=== PATIENT | female | born 1980 | race Caucasian/White ===

== ENCOUNTER 2021-02-04 10:15 | Inpatient (IN) ==
--- NOTE | 2021-02-04 10:40 | Emergency Department Note ---
History of Present Illness General Chief complaint: Mental Health Evaluation Stated complaint: MAJOR DEPRESSION Time Seen by Provider: 02/04/21 10:21 Source: patient and family (Stepmother who is at the bedside) Mode of arrival: ambulatory Limitations: no limitations History of Present Illness Maximum Pain Intensity: 0 This patient comes in complaining of feeling depressed for the last 4 weeks. She says that she has depression is got increasingly worse. She was actually hospitalized in June in [place] for a manic episode. She was very nonfunctional at that time. She has had no manic episodes recently but has gotten severely depressed. She is followed by Dr. Martinez at some point and they have adjusted her medications but she says is not helping. She is on Latuda and they change it to Lamictal. She has not been sleeping well she is been crying a lot. She has had a decreased appetite and she estimates she lost about 15 pounds during this time. She is had no overt suicidal plan but says she just does not want a live. No homicidal plan. She is not seeing or hearing things. No overdose. No aspirin or Tylenol use. She has had diarrhea. No fever. No chest pain or shortness of breath. She is not had the Covid vaccine or the Covid illness. No known exposure to Covid. She denies as she has had a tubal ligation. Home Medications Medication Instructions Recorded Confirmed Type cariprazine [Vraylar] 1.5 mg PO DAILY 02/04/21 02/04/21 History fluoxetine [Prozac] 40 mg PO DAILY 02/04/21 02/04/21 History lamotrigine 25 mg PO DAILY 02/04/21 02/04/21 History Allergies Allergy/AdvReac Type Severity Reaction Status Date / Time No Known Allergies Allergy Unverified 02/04/21 10:46 Past Med/Surg History Social History Smoking Status: Current every day smoker Tobacco Type: Cigarettes Feels Safe at Home: Yes Immunizations: Past medical historybipolar, anxiety, tubal ligation, PTSD Social history. She smokes 1/2 pack a day. Denies alcohol use. She does use medical marijuana for PTSD up to about 6 times a day Review of Systems A total of 10 systems reviewed and were otherwise negative Physical Exam Vital Signs Vital Signs - 24 hr 02/04/21 10:18 02/04/21 12:04 Temperature 36.6 C Temperature Source Temporal Artery Scan Pulse Rate 71 Pulse Rate [Right Finger] 64 Respiratory Rate 16 20 Respiratory Effort / Characteristics Non-Labored Respiratory Depth Normal Blood Pressure 158/103 H Blood Pressure [Right Arm] 131/80 Blood Pressure Mean 121 Blood Pressure Mean [Right Arm] 97 Pulse Oximetry 97 98 Oxygen Delivery Method Room Air Room Air Sepsis Recent Fever Within 48 Hours No Sepsis New/Unexplained Change in Mental Status No Sepsis Action Taken by Nursing No Action Required General: Well developed well nourished middle-age female who appears in no acute distress, breathing comfortably on room air. Normal speech HEENT: Normal cephalic atraumatic. Pupils are equal round and reactive to light. Extraocular movements are intact. Oropharynx is pink with moist mucous membranes. No swelling of the mouth lips or tongue. Neck: Supple with a midline trachea. No meningeal signs or stiffness, no JVD or bruits. No Stridor. Chest: Clear to auscultation bilaterally. No wheezes or rhonchi. No increased work of breathing. Heart: Regular rate and rhythm without murmurs or gallops. Abdomen: Soft nontender, nondistended without rebound guarding or rigidity. Extremities: No cyanosis clubbing or edema. No calf tenderness or assymetry Spine/Back. Non tender to palpation. No CVA tenderness Skin: Good turgor without rashes. Neurologic exam: Cranial nerves two through 12 are intact. Motor and sensation are intact and symmetrical throughout. Psych: Normal affect and thought process. Denies active suicidal or homicidal ideations. Medical Decision Making Differential Diagnosis Depression, anxiety, suicidal ideations, toxicologic, metabolic, overdose, Covid, Medical Records Attestation: I reviewed the patient's medical records. Home Medications Current Medication List: was personally reviewed by me Laboratory Data Attestation: I reviewed the patient's lab results. Result diagrams: 02/04/21 11:08 02/04/21 11:08 Lab Results 02/04/21 02/04/21 02/04/21 Range/Units 10:40 10:40 10:41 WBC (4.8-10.8) K/uL RBC (4.2-5.4) M/uL Hgb (12.0-16.0) g/dL Hct (37-47) % MCV (80-100) fL MCH (25-34) pg MCHC (32-36) g/dL RDW Std Deviation (36.4-46.3) fL RDW Coeff of Johana (11.5-14.5) % Plt Count (130-400) K/uL MPV (7.4-10.4) fL Immature Gran % (Auto) % Neut % (Auto) % Lymph % (Auto) % [place] % (Auto) % Eos % (Auto) % Baso % (Auto) % Neut # (Auto) (1.4-6.5) K/uL Lymph # (Auto) (1.2-3.4) K/uL [place] # (Auto) (0.11-0.59) K/uL Eos # (Auto) (0-0.5) K/uL Baso # (Auto) (0-0.2) K/uL Immature Gran # (Auto) (0.00-0.02) K/uL Sodium (136-145) mmol/L Potassium (3.5-5.1) mmol/L Chloride (98-107) mmol/L Carbon Dioxide (21-32) mmol/L Anion Gap (3-11) BUN (7-18) mg/dl Creatinine (0.6-1.2) mg/dl Est Cr Clr Drug Dosing ml/min Est GFR ( Amer) ml/min Est GFR (Non-Af Amer) ml/min BUN/Creatinine Ratio (10-20) Glucose (70-99) mg/dl Calcium (8.5-10.1) mg/dl Total Bilirubin (0.2-1) mg/dl AST (15-37) U/L ALT (12-78) U/L Alkaline Phosphatase (45-117) U/L Total Protein (6.4-8.2) gm/dl Albumin (3.4-5.0) gm/dl Globulin (2.5-4.0) gm/dl Albumin/Globulin Ratio (0.9-2) TSH (0.300-4.500) uIu/ml HCG, Qual (Negative) Urine Color Yellow Urine Appearance Cloudy A (Clear) Urine pH 7.5 (4.5-7.5) Ur Specific [place] 1.021 (1.000-1.030) Urine Protein Negative (Negative) Urine Glucose (UA) Negative (Negative) Urine Ketones 1+ H (Negative) Urine Blood 1+ H (Negative) Urine Nitrite Negative (Negative) Urine Bilirubin Negative (Negative) Urine Urobilinogen Negative (Negative) Ur Leukocyte Esterase Negative (Negative) Urine WBC (Auto) 1-5 (0-5) /hpf Urine RBC (Auto) 10-30 H (0-4) /hpf U Hyaline Cast (Auto) 1-5 (0-5) /lpf U Epithel Cells (Auto) >30 H (0-5) /lpf Urine Bacteria (Auto) Negative (Negative) Salicylates (2.8-20) mg/dl Urine Opiates Screen Neg (Neg) Ur Methadone, Qual Neg (Neg) Acetaminophen (10-30) ug/ml Urine Barbiturates Neg (Neg) Ur Phencyclidine (PCP) Neg (Neg) U Amphetamin/Meth Scrn Neg (Neg) MDMA (Ecstasy) Screen Neg (Neg) U Benzodiazepines Scrn Neg (Neg) Ur Cocaine Metabolite Neg (Neg) U Marijuana (THC) Screen Pos H (Neg) Ethyl Alcohol mg/dL (0-3) mg/dl COVID-19 Eval Order Covid19 at [facility] SARS-CoV-2 (PCR) (Negative) 02/04/21 02/04/21 02/04/21 Range/Units 10:41 11:08 11:08 WBC 9.46 (4.8-10.8) K/uL RBC 4.62 (4.2-5.4) M/uL Hgb 14.7 (12.0-16.0) g/dL Hct 42.0 (37-47) % MCV 90.9 (80-100) fL MCH 31.8 (25-34) pg MCHC 35.0 (32-36) g/dL RDW Std Deviation 41.5 (36.4-46.3) fL RDW Coeff of Johana 12.6 (11.5-14.5) % Plt Count 294 (130-400) K/uL MPV 9.3 (7.4-10.4) fL Immature Gran % (Auto) 0.5 % Neut % (Auto) 77.7 % Lymph % (Auto) 15.9 % [place] % (Auto) 5.0 % Eos % (Auto) 0.7 % Baso % (Auto) 0.2 % Neut # (Auto) 7.35 H (1.4-6.5) K/uL Lymph # (Auto) 1.50 (1.2-3.4) K/uL [place] # (Auto) 0.47 (0.11-0.59) K/uL Eos # (Auto) 0.07 (0-0.5) K/uL Baso # (Auto) 0.02 (0-0.2) K/uL Immature Gran # (Auto) 0.05 H (0.00-0.02) K/uL Sodium 139 (136-145) mmol/L Potassium 3.8 (3.5-5.1) mmol/L Chloride 104 (98-107) mmol/L Carbon Dioxide 29 (21-32) mmol/L Anion Gap 6.0 (3-11) BUN 10 (7-18) mg/dl Creatinine 0.67 (0.6-1.2) mg/dl Est Cr Clr Drug Dosing 132.0 ml/min Est GFR ( Amer) 129.2 ml/min Est GFR (Non-Af Amer) 111.5 ml/min BUN/Creatinine Ratio 14.7 (10-20) Glucose 108 H (70-99) mg/dl Calcium 9.2 (8.5-10.1) mg/dl Total Bilirubin 0.7 (0.2-1) mg/dl AST 19 (15-37) U/L ALT 38 (12-78) U/L Alkaline Phosphatase 65 (45-117) U/L Total Protein 7.6 (6.4-8.2) gm/dl Albumin 4.1 (3.4-5.0) gm/dl Globulin 3.5 (2.5-4.0) gm/dl Albumin/Globulin Ratio 1.2 (0.9-2) TSH 0.657 (0.300-4.500) uIu/ml HCG, Qual (Negative) Urine Color Urine Appearance (Clear) Urine pH (4.5-7.5) Ur Specific Colgate (1.000-1.030) Urine Protein (Negative) Urine Glucose (UA) (Negative) Urine Ketones (Negative) Urine Blood (Negative) Urine Nitrite (Negative) Urine Bilirubin (Negative) Urine Urobilinogen (Negative) Ur Leukocyte Esterase (Negative) Urine WBC (Auto) (0-5) /hpf Urine RBC (Auto) (0-4) /hpf U Hyaline Cast (Auto) (0-5) /lpf U Epithel Cells (Auto) (0-5) /lpf Urine Bacteria (Auto) (Negative) Salicylates (2.8-20) mg/dl Urine Opiates Screen (Neg) Ur Methadone, Qual (Neg) Acetaminophen (10-30) ug/ml Urine Barbiturates (Neg) Ur Phencyclidine (PCP) (Neg) U Amphetamin/Meth Scrn (Neg) MDMA (Ecstasy) Screen (Neg) U Benzodiazepines Scrn (Neg) Ur Cocaine Metabolite (Neg) U Marijuana (THC) Screen (Neg) Ethyl Alcohol mg/dL (0-3) mg/dl COVID-19 Eval Order SARS-CoV-2 (PCR) NEGATIVE (Negative) 02/04/21 02/04/21 02/04/21 Range/Units 11:08 11:08 11:08 WBC (4.8-10.8) K/uL RBC (4.2-5.4) M/uL Hgb (12.0-16.0) g/dL Hct (37-47) % MCV (80-100) fL MCH (25-34) pg MCHC (32-36) g/dL RDW Std Deviation (36.4-46.3) fL RDW Coeff of Johana (11.5-14.5) % Plt Count (130-400) K/uL MPV (7.4-10.4) fL Immature Gran % (Auto) % Neut % (Auto) % Lymph % (Auto) % [place] % (Auto) % Eos % (Auto) % Baso % (Auto) % Neut # (Auto) (1.4-6.5) K/uL Lymph # (Auto) (1.2-3.4) K/uL [place] # (Auto) (0.11-0.59) K/uL Eos # (Auto) (0-0.5) K/uL Baso # (Auto) (0-0.2) K/uL Immature Gran # (Auto) (0.00-0.02) K/uL Sodium (136-145) mmol/L Potassium (3.5-5.1) mmol/L Chloride (98-107) mmol/L Carbon Dioxide (21-32) mmol/L Anion Gap (3-11) BUN (7-18) mg/dl Creatinine (0.6-1.2) mg/dl Est Cr Clr Drug Dosing ml/min Est GFR ( Amer) ml/min Est GFR (Non-Af Amer) ml/min BUN/Creatinine Ratio (10-20) Glucose (70-99) mg/dl Calcium (8.5-10.1) mg/dl Total Bilirubin (0.2-1) mg/dl AST (15-37) U/L ALT (12-78) U/L Alkaline Phosphatase (45-117) U/L Total Protein (6.4-8.2) gm/dl Albumin (3.4-5.0) gm/dl Globulin (2.5-4.0) gm/dl Albumin/Globulin Ratio (0.9-2) TSH (0.300-4.500) uIu/ml HCG, Qual Negative (Negative) Urine Color Urine Appearance (Clear) Urine pH (4.5-7.5) Ur Specific [place]gate (1.000-1.030) Urine Protein (Negative) Urine Glucose (UA) (Negative) Urine Ketones (Negative) Urine Blood (Negative) Urine Nitrite (Negative) Urine Bilirubin (Negative) Urine Urobilinogen (Negative) Ur Leukocyte Esterase (Negative) Urine WBC (Auto) (0-5) /hpf Urine RBC (Auto) (0-4) /hpf U Hyaline Cast (Auto) (0-5) /lpf U Epithel Cells (Auto) (0-5) /lpf Urine Bacteria (Auto) (Negative) Salicylates 1.8 L (2.8-20) mg/dl Urine Opiates Screen (Neg) Ur Methadone, Qual (Neg) Acetaminophen < 2 L (10-30) ug/ml Urine Barbiturates (Neg) Ur Phencyclidine (PCP) (Neg) U Amphetamin/Meth Scrn (Neg) MDMA (Ecstasy) Screen (Neg) U Benzodiazepines Scrn (Neg) Ur Cocaine Metabolite (Neg) U Marijuana (THC) Screen (Neg) Ethyl Alcohol mg/dL < 3.0 (0-3) mg/dl COVID-19 Eval Order SARS-CoV-2 (PCR) (Negative) Imaging Data Attestation: I personally reviewed and interpreted this imaging study as follows: MDM Narrative This patient comes in as described above. She was placed in room A7. She is here for treatment evaluation of increasing depression. She has been following closely with her outpatient psychiatrist and despite this medication changes she does not feel she is doing well. Multiple blood testing, urinalysis, and Covid testing was obtained for medical clearance. She has no significant electrolyte or metabolic abnormalities. She is nothing to suggest acute toxicologic or infectious process. Covid testing was negative. She has remained stable. She has been medically cleared and was further evaluated by our psychiatric pillowcase turner. She will be admitted voluntarily to our mental health unit at [facility]. Impression & Plan Depression, Anxiety, Lab test negative for COVID-19 virus Discharge Plan Visit Data Chief Complaint: Mental Health Evaluation Stated Complaint: MAJOR DEPRESSION ED Provider: Eric Zamorano Discharge Problem: Depression, Anxiety, Lab test negative for COVID-19 virus Discharge Instructions Interventions: ED Discharge Assessment Last Done: 02/04/21 14:25 Forms Stand Alone Forms: [facility], Suicide Prevention Resources Prescriptions Prescriptions: No Action fluoxetine [Prozac] 40 mg Capsule 40 mg PO DAILY RF: 0 lamotrigine 25 mg tablet 25 mg PO DAILY RF: 0 Vraylar 1.5 mg capsule 1.5 mg PO DAILY RF: 0 Referrals Referrals: Brenda Emerson DO [Primary Care Provider] - Discharge Problem: Depression Qualifiers: Depression Type: unspecified Qualified Code(s): F32.9 - Major depressive disorder, single episode, unspecified
[2021-02-04 11:11] LABS: Appearance Urine Cloudy (Clear); Bacteria Urine Automated Negative (Negative); Bilirubin Urine Negative (Negative); Blood Urine 1+ (Negative); Color Urine Yellow; Epithelial Cell Urine Auto >30 /lpf (0-5); Glucose Urine UA Negative (Negative); Ketones Urine 1+ (Negative); Leukocyte Esterase Urine Negative (Negative); Nitrite Urine Negative (Negative); Protein Urine Negative (Negative); Specific Gravity Urine 1.021 (1.000-1.030); Urobilinogen Urine Negative (Negative); pH Urine 7.5 (4.5-7.5)
[2021-02-04 11:20] LABS: Basophils # (auto) 0.02 K/uL (0-0.2); Basophils % (auto) 0.2 %; Eosinophils # (auto) 0.07 K/uL (0-0.5); Eosinophils % (auto) 0.7 %; Hemoglobin 14.7 g/dL (12.0-16.0); Immature Granulocytes # (auto) 0.05 K/uL (0.00-0.02); Immature Granulocytes % (auto) 0.5 %; Lymphocytes % (auto) 15.9 %; Mean Corpuscular Hemoglobin 31.8 pg (25-34); Mean Corpuscular Volume 90.9 fL (80-100); Mean Platelet Volume 9.3 fL (7.4-10.4); Monocytes # (auto) 0.47 K/uL (0.11-0.59); Neutrophils # (auto) 7.35 K/uL (1.4-6.5); Neutrophils % (auto) 77.7 %; Platelet Count 294 K/uL (130-400); RDW Coefficient of Variation 12.6 % (11.5-14.5); RDW Standard Deviation 41.5 fL (36.4-46.3); Red Blood Count 4.62 M/uL (4.2-5.4); White Blood Count 9.46 K/uL (4.8-10.8)
[2021-02-04 11:24] LABS: Amphetamines+Metham, Urine Neg (Neg); Barbiturates, Urine Neg (Neg); Benzodiazepine, Urine Neg (Neg); Cocaine, Urine Neg (Neg); MDMA (Ecstacy), Urine Neg (Neg); Methadone, Urine Neg (Neg); Opiate, Urine Neg (Neg); Phencyclidine, Urine Neg (Neg)
[2021-02-04 11:33] LABS: Pregnancy Test, Serum Negative (Negative)
[2021-02-04 11:39] LABS: Albumin Level 4.1 gm/dl (3.4-5.0); BUN Creatinine Ratio 14.7 (10-20); Calcium 9.2 mg/dl (8.5-10.1); Est GFR (African American) 129.2 ml/min; Est GFR (Non-African American) 111.5 ml/min; Potassium 3.8 mmol/L (3.5-5.1)
[2021-02-04 11:44] LABS: Acetaminophen < 2 ug/ml (10-30); Salicylate 1.8 mg/dl (2.8-20)
[2021-02-04 11:49] LABS: Albumin Globulin Ratio 1.2 (0.9-2); Bilirubin,Total 0.7 mg/dl (0.2-1); Globulin 3.5 gm/dl (2.5-4.0); Thyroid Stimulating Hormone 0.657 uIu/ml (0.300-4.500); Total Protein 7.6 gm/dl (6.4-8.2)
[2021-02-04] MEDS ORDERED: hydrOXYzine HCl 25 MG TAB PO PRN (14:54)
[2021-02-04] MEDS ORDERED: BISMUTH SUBSALICYLATE LIQD 236 ML PO PRN (14:54)
[2021-02-04] MEDS ORDERED: ACETAMINOPHEN 325 MG TAB PO PRN (14:54)
[2021-02-04] MEDS ORDERED: ALUMINUM/MAGNESIUM SUSP 30 ML UDC PO PRN (14:54)
[2021-02-04] MEDS ORDERED: SODIUM CHLORIDE 0.65% NA SOLN 45 ML (OCEAN) PRN (14:54)
[2021-02-04] MEDS ORDERED: MAGNESIUM HYDROXIDE SUSP 30 ML UDC PO PRN (14:54)
[2021-02-04] MEDS: hydrOXYzine HCl 25 MG TAB PO PRN (21:15)
[2021-02-05] MEDS ORDERED: PROPRANOLOL HCL 20 MG TAB PO PRN (12:22)
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
[2021-02-05] MEDS ORDERED: ARIPIprazole 1 MG/ML ORAL SOLN 150 ML BTL PO SCH (13:00)
[2021-02-05] MEDS: ARIPiprazole 5 MG TAB PO SCH (14:22)
[2021-02-05] MEDS: FLUoxetine HCL 20 MG CAP PO SCH (14:24)
[2021-02-05 16:06] LABS: Marijuana Quant, GCMS Urine 678 ng/mL (<5)
[2021-02-05] MEDS: lamoTRIgine 25 MG TAB PO SCH (20:46)
[2021-02-05] MEDS: LITHIUM CARBONATE 300 MG TAB PO SCH (20:46)
[2021-02-06] MEDS: FLUoxetine HCL 20 MG CAP PO SCH (10:26)
[2021-02-06] MEDS: ARIPiprazole 5 MG TAB PO SCH (10:26)
--- NOTE | 2021-02-06 17:47 | Psychiatric Progress Note ---
Date of Service February 06, 2021 Impression / Recommendations Impression 40-year old female with a history of bipolar disorder current episode presents as depressed. (1) Depression: Patient #1 his depression patient is admitted to the [address] inpatient mental health unit on a every 15 minute check behavior with suicide precautions for safety the patient will participate in groups both recreation and milieu therapies and will be offered additional individual and family sessions as clinically appropriate. For bipolar depression patient will be started low-dose lithium 300mg, discussed risks and benefits of lithium with this patient she is agreeable to taking it. Understands the possibility of hypothyroidism as well as problems with her kidney and weight gain she agrees to take this as a short-term medication while her Lamictal is being titrated up Patient started on Lamictal 50 mg recently started about a week and a half ago no side effects so far patient is able to go up to 50 mg Patient will be started low-dose Abilify 2 mg every morning with a plan to titrate to 5 mg as an adjunct to her treatment. Patient does not want to continue Vraylar, reports that 3 mg does gave her side effects and not think 1.5 mg is working will discontinue Vraylar 02/06/21-reports feeling better side effects has not noticed any yet we will continue lithium we will continue low-dose Abilify consider increasing to 5 mg tomorrow. Patient was not actively suicidal is still concerned about depression especially in the context of returning to home stressors. Her family meeting went well. We will continue to monitor response to medications. (2) Anxiety: Patient will be started on hydroxyzine 3 times daily as needed anxiety patient also taking propanolol at home 20 mg 3 times daily as needed anxiety views were continued. (3) Cannabis use disorder, moderate, dependence: Patient reports daily use of medical marijuana. 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 Patient advised to discontinue use of cannabis. Would consider outpatient therapy for this. Risk Factors Assessment Do You Have Access To A Gun?: No Protective Factors Assessment Employed: Yes ([employer]) Interval History Chief Complaint "[I think I am doing better I sometimes think I am confused but the medications are helping]". Review of Systems Sleep Information Total Hours of Sleep: 6.5 Meal Information Percent Meal Consumed - Breakfast: 50 Percent Meal Consumed - Lunch: 100 Percent Meal Consumed - Dinner: 90 Subjective Subjective Patient was seen & assessed and interval progress reviewed with [treatment team] [nursing and social work, patient is engaged in groups, denies side effects to her current medication reports a deeper understanding of how cannabis use may have been affecting her health. Denies suicidal ideation or homicidal ideation feels that the depression is lifting" denies hopelessness. Physical Exam Psychiatric Orientation: alert, oriented x 3, oriented to person and cooperative Apperance: appropriately dressed Eye Contact: good eye contact Motor Behavior: steady gait and station Speech: normal rate/rhythm/volume of speech; no pressured speech and no loud speech Affect: + depressed affect, + anxious affect and + tearful affect Mood: + depressed mood Thought Process: goal directed thought process and linear/logical thought process; no flight of ideas and no looseness of associations Thought Content: no preoccupation Suicidal Thoughts: denies suicidal thoughts Homicidal Thoughts: denies homicidal thoughts Hallucinations: no auditory hallucinations and no visual hallucinations Cognition: recent memory grossly intact, remote memory grossly intact, attention grossly intact and language grossly intact Estimated Intelligence: consistent with education level Insight: good insight Judgement: good judgement Vital Signs (Past 24 Hours) Last Vital Signs Temp 36.7 C 02/06/21 06:36 Pulse 73 02/06/21 06:37 Resp 16 02/06/21 06:36 BP 139/86 02/06/21 06:37 Pulse Ox 98 02/04/21 12:04 Physical exam was performed in the ED by Dr. Eric Zamorano on 02/04/2021 for the purposes of medical clearance I assessed the physical exam as correct and adequate for the purposes of the inpatient exam. Results & Data ([facility]) Current Inpatient Medications Current Inpatient Medications: Current Inpatient Medications Acetaminophen (Acetaminophen 325 Mg Tab) 650 mg PO Q4H PRN PRN Reason: Headache or Minor Fever Stop: 03/06/21 14:53 Al Hydrox/Mg Hydrox/Simethicone (Aluminum/Magnesium Susp 30 Ml Udc) 30 ml PO Q4H PRN PRN Reason: GI Upset Stop: 03/06/21 14:53 Aripiprazole (Aripiprazole 5 Mg Tab) 2.5 mg PO QAM JENNIFER Stop: 03/07/21 13:29 Last Admin: 02/06/21 10:26 Dose: 2.5 mg Documented by: Bismuth Subsalicylate (Bismuth Subsalicylate Liqd 236 Ml) 15 ml PO PRN PRN PRN Reason: Loose Stool Stop: 03/06/21 14:53 Fluoxetine HCl (Fluoxetine Hcl 20 Mg Cap) 20 mg PO QAM JENNIFER Stop: 03/07/21 12:59 Last Admin: 02/06/21 10:26 Dose: 20 mg Documented by: Hydroxyzine HCl (Hydroxyzine Hcl 25 Mg Tab) 50 mg PO HSZ PRN PRN Reason: Insomnia Stop: 03/06/21 14:53 Last Admin: 02/04/21 21:15 Dose: 50 mg Documented by: Hydroxyzine HCl (Hydroxyzine Hcl 25 Mg Tab) 25 mg PO Q4H PRN PRN Reason: Anxiety Stop: 03/06/21 14:53 Last Admin: 02/04/21 20:03 Dose: 25 mg Documented by: Lamotrigine (Lamotrigine 25 Mg Tab) 50 mg PO HS JENNIFER Stop: 03/07/21 21:59 Last Admin: 02/05/21 20:46 Dose: 50 mg Documented by: [place] Carbonate ([place] Carbonate 300 Mg Tab) 300 mg PO HS JENNIFER Stop: 03/07/21 21:59 Last Admin: 02/05/21 20:46 Dose: 300 mg Documented by: Magnesium Hydroxide (Magnesium Hydroxide Susp 30 Ml Udc) 30 ml PO DAILY PRN PRN Reason: Constipation Stop: 03/06/21 14:53 Propranolol HCl (Propranolol Hcl 20 Mg Tab) 20 mg PO BID PRN PRN Reason: anxiety/akasthesia Stop: 03/07/21 12:21 Sodium Chloride (Sodium Chloride 0.65% Na Soln 45 Ml ([place])) 1 - 2 sprays NA PRN PRN PRN Reason: Nasal Dryness/Congestion Stop: 03/06/21 14:53 Mental Health & Subst Abuse Tx Psychiatrist Name of Psychiatrist: Dr. Martinez [facility] Psychiatrist's Date of Appointment with Psychiatrist: 02/15/21 Time of Appointment with Psychiatrist: 11am Psychiatric Appointment Comment: virtual Therapist Name of Therapist: Hung [place] Therapist's Therapy Appointment Comment: contacted- left message Parboiler Name of Parboiler: None Post Discharge Appointments Primary Care Physician Name Of Family Doctor: Flor Hernadez Contact Information Discharge Discharge Address: [address] [place] [id number] (1) Depression Depression Type: unspecified Qualified Code(s): F32.9 - Major depressive disorder, single episode, unspecified
[2021-02-06] MEDS: lamoTRIgine 25 MG TAB PO SCH (21:09)
[2021-02-06] MEDS: LITHIUM CARBONATE 300 MG TAB PO SCH (21:09)
[2021-02-06] MEDS: hydrOXYzine HCl 25 MG TAB PO PRN (21:11)
[2021-02-07 08:35] LABS: Glucose Fasting 112 mg/dl (70-99)
[2021-02-07 08:42] LABS: Chol HDL Ratio 5; Cholesterol 207 mg/dl (0-200); HDL Cholesterol 40 mg/dl; LDL Cholesterol Calculated 135 mg/dl; Triglycerides 161 mg/dl (0-150); VLDL Cholesterol 32 mg/dl
[2021-02-07] MEDS: ARIPiprazole 5 MG TAB PO SCH (08:42)
[2021-02-07] MEDS: FLUoxetine HCL 20 MG CAP PO SCH (08:43)
--- NOTE | 2021-02-07 14:18 | Psychiatric Progress Note ---
Date of Service February 07, 2021 Impression / Recommendations Impression 40-year old female with a history of bipolar disorder current episode presents as depressed. (1) Depression: Patient #1 his depression patient is admitted to the [address] inpatient mental health unit on a every 15 minute check behavior with suicide precautions for safety the patient will participate in groups both recreation and milieu therapies and will be offered additional individual and family sessions as clinically appropriate. For bipolar depression patient will be started low-dose lithium 300mg, discussed risks and benefits of lithium with this patient she is agreeable to taking it. Understands the possibility of hypothyroidism as well as problems with her kidney and weight gain she agrees to take this as a short-term medication while her Lamictal is being titrated up Patient started on Lamictal 50 mg recently started about a week and a half ago no side effects so far patient is able to go up to 50 mg Patient will be started low-dose Abilify 2 mg every morning with a plan to titrate to 5 mg as an adjunct to her treatment. Patient does not want to continue Vraylar, reports that 3 mg does gave her side effects and not think 1.5 mg is working will discontinue Vraylar 02/07/2021 patient reports no side effects on current medications his medications have been stabilizing understands the plan to titrate Lamictal to 75 mg we will keep Prozac at 20 mg patient doing really well on this him doing well on Abilify will keep Abilify same dose consider increasing to 5 mg and after discharge information will be sent to primary care doctor as well as a psychiatrist at this today there is no thoughts of suicide however important to continue to monitor medication. 02/06/21-reports feeling better side effects has not noticed any yet we will continue lithium we will continue low-dose Abilify consider increasing to 5 mg tomorrow. Patient was not actively suicidal is still concerned about depression especially in the context of returning to home stressors. Her family meeting went well. We will continue to monitor response to medications. (2) Anxiety: Patient will be started on hydroxyzine 3 times daily as needed anxiety patient also taking propanolol at home 20 mg 3 times daily as needed anxiety views were continued. (3) Cannabis use disorder, moderate, dependence: Patient reports daily use of medical marijuana. 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 Patient advised to discontinue use of cannabis. Would consider outpatient therapy for this. Risk Factors Assessment Do You Have Access To A Gun?: No Protective Factors Assessment Employed: Yes ([employer]) Interval History Chief Complaint "I think I am doing better I feel ready I feel more relaxed and I am determined not to use cannabis when I leave here". Review of Systems Sleep Information Total Hours of Sleep: 8 Meal Information Percent Meal Consumed - Breakfast: 90 Percent Meal Consumed - Lunch: 100 Percent Meal Consumed - Dinner: 90 Subjective Subjective Patient was seen & assessed and interval progress reviewed with treatment team nursing and social work. Patient reports taking medications denies any side effects looking forward to palpation increasing the disease. "I really needed this. I need to get my head straight and do to start taking her medications properly and I know I need to get off medical marijuana" Patient denies depression denies suicidal ideation denies any danger to self or danger to others no evidence of hallucinations no response to internal stimuli. Physical Exam Psychiatric Orientation: alert, oriented x 3, oriented to person and cooperative Apperance: appropriately dressed Eye Contact: good eye contact Motor Behavior: steady gait and station Speech: normal rate/rhythm/volume of speech; no pressured speech and no loud speech Affect: euthymic affect and + anxious affect Mood: + depressed mood Thought Process: goal directed thought process and linear/logical thought process; no flight of ideas and no looseness of associations Thought Content: no preoccupation, not paranoid and no delusions Suicidal Thoughts: denies suicidal thoughts Homicidal Thoughts: denies homicidal thoughts Hallucinations: no auditory hallucinations and no visual hallucinations Cognition: recent memory grossly intact, remote memory grossly intact, attention grossly intact and language grossly intact Estimated Intelligence: consistent with education level Insight: good insight Judgement: good judgement Vital Signs (Past 24 Hours) Last Vital Signs Temp 36.7 C 02/07/21 06:00 Pulse 85 02/07/21 06:48 Resp 16 02/07/21 06:00 BP 125/88 02/07/21 06:48 Pulse Ox 98 02/04/21 12:04 Physical exam was performed in the ED by Dr. Eric Zamorano on 02/04/2021 for the purposes of medical clearance I assessed the physical exam as correct and adequate for the purposes of the inpatient exam. Results & Data ([facility]) Laboratory Results Laboratory Results - last 24 hr 02/07/21 08:01 Fasting Glucose 112 H Triglycerides 161 H Cholesterol 207 H LDL Cholesterol, Calc 135 VLDL Cholesterol, Calc 32 HDL Cholesterol 40 Cholesterol/HDL Ratio 5 Current Inpatient Medications Current Inpatient Medications: Current Inpatient Medications Acetaminophen (Acetaminophen 325 Mg Tab) 650 mg PO Q4H PRN PRN Reason: Headache or Minor Fever Stop: 03/06/21 14:53 Al Hydrox/Mg Hydrox/Simethicone (Aluminum/Magnesium Susp 30 Ml Udc) 30 ml PO Q4H PRN PRN Reason: GI Upset Stop: 03/06/21 14:53 Aripiprazole (Aripiprazole 5 Mg Tab) [facility] [place] Stop: 03/07/21 13:29 Last Admin: 02/07/21 08:42 Dose: 2.5 mg Documented by: Bismuth Subsalicylate (Bismuth Subsalicylate Liqd 236 Ml) 15 ml PO PRN PRN PRN Reason: Loose Stool Stop: 03/06/21 14:53 Fluoxetine HCl (Fluoxetine Hcl 20 Mg Cap) [facility] [place] Stop: 03/07/21 12:59 Last Admin: 02/07/21 08:43 Dose: 20 mg Documented by: Hydroxyzine HCl (Hydroxyzine Hcl 25 Mg Tab) 50 mg PO HSZ PRN PRN Reason: Insomnia Stop: 03/06/21 14:53 Last Admin: 02/06/21 21:11 Dose: 50 mg Documented by: Hydroxyzine HCl (Hydroxyzine Hcl 25 Mg Tab) 25 mg PO Q4H PRN PRN Reason: Anxiety Stop: 03/06/21 14:53 Last Admin: 02/04/21 20:03 Dose: 25 mg Documented by: Lamotrigine (Lamotrigine 25 Mg Tab) 50 mg PO [facility] Stop: 03/07/21 21:59 Last Admin: 02/06/21 21:09 Dose: 50 mg Documented by: [place] Carbonate ([place] Carbonate 300 Mg Tab) 300 mg PO [facility] Stop: 03/07/21 21:59 Last Admin: 02/06/21 21:09 Dose: 300 mg Documented by: Magnesium Hydroxide (Magnesium Hydroxide Susp 30 Ml Udc) 30 ml PO DAILY PRN PRN Reason: Constipation Stop: 03/06/21 14:53 Propranolol HCl (Propranolol Hcl 20 Mg Tab) 20 mg PO BID PRN PRN Reason: anxiety/akasthesia Stop: 03/07/21 12:21 Sodium Chloride (Sodium Chloride 0.65% Na Soln 45 Ml ([place])) 1 - 2 sprays NA PRN PRN PRN Reason: Nasal Dryness/Congestion Stop: 03/06/21 14:53 Mental Health & Subst Abuse Tx Psychiatrist [facility] Date of Appointment with Psychiatrist: 02/15/21 Time of Appointment with Psychiatrist: 11am Psychiatric Appointment Comment: virtual Therapist Name of Therapist: Dorinda Parish Therapist's Therapy Appointment Comment: [id number] [place] [address] Store Deli Manager Name of Store Deli Manager: None Post Discharge Appointments Primary Care Physician Name Of Family Doctor: Flor Hernadez Primary Care Provider Appointment Comment: [phone] [facility] [place] [id number] Contact Information Discharge Discharge [address]: [address] [place] [address] [place] [id number] (1) Depression Depression Type: unspecified Qualified Code(s): F32.9 - Major depressive disorder, single episode, unspecified
[2021-02-07] MEDS: lamoTRIgine 25 MG TAB PO SCH (21:08)
[2021-02-07] MEDS: LITHIUM CARBONATE 300 MG TAB PO SCH (21:08)
[2021-02-08] MEDS: ARIPiprazole 5 MG TAB PO SCH (08:55)
[2021-02-08] MEDS: FLUoxetine HCL 20 MG CAP PO SCH (08:55)
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
== END 2021-02-08 11:42 | disposition home or self-care (01) | DRG 885 ==
LOC: ED 10:15 → 3S 14:25